=== PATIENT | female | born 1985 | race Caucasian/White ===

== ENCOUNTER 2017-03-13 14:37 | Emergency (ER) | payer MEDICARE, OTHER ==
[~2017-03-13] VITALS: Ht 162.6 cm; Wt 126.0 kg
[2017-03-13 14:43] VITALS: Ht 162.6 cm; Wt 126.0 kg
--- NOTE | 2017-03-13 16:58 | ERD ---
ER Documentation Chief Complaint Chief Complaint Palpitations on and off x 3 weeks HPI 32-year-old female, with history of schizophrenia, presents to the emergency department requesting to be admitted for management of her rash and palpitations. The patient states that [place] is very frustrated [place] at multiple hospital in the [place] area requesting to be admitted and she has not been hospitalized. Refers that the palpitations are occasional, and the last less than a minute. Denies chest pain, shortness of breath, or dizziness. ROS SYSTEMIC symptoms: no fever, chills, no night sweats, no weight loss EYE symptoms: No blurred vision, no eye discharge OTOLARYNGEAL symptoms: No hearing loss. No ear pain, no sore throat CARDIOVASCULAR symptoms: No chest pain or discomfort, + palpitations. PULMONARY symptoms: No dyspnea, no cough, no wheezing. GASTROINTESTINAL symptoms: No abdominal pain, no nausea, no vomiting, no diarrhea MUSCULOSKELETAL symptoms: No arthralgias, no muscle aches. NEUROLOGY symptoms: No confusion, no syncope, no numbness or tingling. SKIN + rashes All systems reviewed and are negative except as per history of present illness. Allergies Allergies: Coded Allergies: chlorpromazine (Verified Allergy, Unknown, 03/13/17) haloperidol (Verified Allergy, Unknown, 03/13/17) oxcarbazepine (Verified Allergy, Unknown, 03/13/17) Physical Exam Vitals Vital Signs Date Time Temp Pulse Resp B/P Pulse Ox O2 Delivery O2 Flow Rate FiO2 03/13/17 14:43 98.1 104 18 163/91 97 Physical Exam Patient is in no acute distress, vital signs stable. Alert and fully oriented. EYES: PERRLA, EOMI, Sclera and conjunctiva appear normal. THROAT: Normal oropharynx. NECK: Supple, No lymphadenopathy. Full ROM without pain or tenderness. HEART: RRR, no rubs, murmurs, clicks or gallops. LUNGS: Clear to auscultation. ABDOMEN: Soft, non-tender without masses or hepatosplenomegaly. EXTREMITIES: Multiple excoriations in different healing stages without evidence of infection Results 24 hrs EKG read by me: Rate/Rhythm: Regular rate and rhythm at a rate of 99 Intervals: Normal No ST changes. No T wave inversion Impression: No evidence of ischemia or arrhythmia Procedures/MDM 32y/o female patient with history of schizophrenia, presents to the ED requesting to be admitted for evaluation of palpitations. Vital signs stable, Physical exam unremarkable. Very low suspicion for an acute coronary event. Pertinent Data: 12 Lead ECG: Sinus rhythm, no ST changes, normal T wave, normal intervals During the ED course the patient requested to be waiting outside so she could smoke. The patient was informed that at this time she does not meet criteria to have inpatient management. I recommend a follow-up outpatient. Results and medical impression discussed with patient who agrees with management. The patient will be discharged home with ER precautions for chest pain If symptoms persist, worsen or new symptoms develop, then patient is instructed to follow-up with the primary care provider. If the patient is unable to see the primary care provider, then return to the ED immediately. Departure Diagnosis: Primary Impression: Palpitations Condition: Stable Additional Instructions: Thank you very much for allowing us to participate in your care. Your health and safety is our top priority at [facility]. Have prescriptions filled and follow precisely the directions on the label. Follow-up with primary care provider during the next 4 days and bring all the information and medications prescribed. If illness has not improved in 2 days, then make an appointment with primary care provider. If the provider is unavailable, return to the Emergency Department immediately. BECCA ALTAMIRANO MD Mar 13, 2017 16:57
== END 2017-03-13 18:49 | disposition home or self-care (01) ==
LOC: FTE 14:37
DX: R00.2 Palpitations (principal)
CPT/HCPCS: 99282